=== PATIENT | male | born 1955 | race Caucasian/White ===

== ENCOUNTER → 2018-07-03 | Outpatient (CLI) | payer BC ==
--- NOTE | 2018-07-03 09:38 | CARD ---
MR#: [id number] Date of Study: 07/03/2018 Ordering Physician: SHAMIKA DOBBINS, Referring Physician: SHAMIKA DOBBINS Tech: Ashanti Louise RDCS APPROVED REPORT EXAM: Two-dimensional and M-mode echocardiogram with Doppler and color Doppler. Other Information Quality : AverageHR: 60bpm Rhythm : NSR INDICATION CAD 2D DIMENSIONS RVDd2.5 (2.9-3.5cm)Left Atrium(2D)3.1 (1.6-4.0cm) IVSd1.1 (0.7-1.1cm)Aortic Root(2D)2.8 (2.0-3.7cm) LVDd4.6 (3.9-5.9cm)LVOT Diameter2.0 (1.8-2.4cm) PWd1.0 (0.7-1.1cm)LVDs3.2 (2.5-4.0cm) FS (%) 30.1 %SV57.1 ml LVEF(%)57.3 (>50%) Aortic Valve AoV Peak Ralf.111.1cm/sAoV VTI22.6cm AO Peak GR.4.9mmHgLVOT Peak Ralf.97.5cm/s LVOT VTI 22.42cmAO Mean GR.2mmHg JOSE D (VMAX)2.79im7XID (VTI)2.98cm2 Mitral Valve MV E Jzhcgeoz12.1cm/sMV E Peak Gr.3mmHg MV DECEL [id number] A Pridbqwd82.7cm/s MV E Mean Gr.1mmHgE/A Ratio1.6 MV A Ydpzganx994iv Pulmonary Valve PV Peak Ztouoymc670.8cm/sPV Peak Grad.5mmHg LEFT VENTRICLE The left ventricle is normal size. There is borderline concentric left ventricular hypertrophy. The l eft ventricular systolic function is normal. The Ejection Fraction is 55-60%. There is normal LV segm ental wall motion. Transmitral Doppler flow pattern is Grade II-pseudonormal filling dynamics. RIGHT VENTRICLE The right ventricle is normal size. There is normal right ventricular wall thickness. The right ventr icular systolic function is normal. ATRIA The left atrium size is normal. The right atrium size is normal. The interatrial septum is intact wit h no evidence for an atrial septal defect or patent foramen ovale as noted on 2-D or Doppler imaging. AORTIC VALVE The aortic valve is trileaflet. The aortic valve is normal in structure and function. Doppler and Col or Flow revealed no significant aortic regurgitation. There is no significant aortic valvular stenosi s. MITRAL VALVE The mitral valve is normal in structure and function. There is no evidence of mitral valve prolapse. There is no mitral valve stenosis. Doppler and Color-flow revealed trace mitral regurgitation. TRICUSPID VALVE The tricuspid valve is normal in structure and function. Doppler and Color Flow revealed no tricuspid valve regurgitation noted. There is no tricuspid valve prolapse or vegetation. There is no tricuspid valve stenosis. PULMONIC VALVE The pulmonary valve is normal in structure and function. Doppler and Color Flow revealed no pulmonic valvular regurgitation. There is no pulmonic valvular stenosis. GREAT VESSELS The aortic root is normal in size. The ascending aorta is normal in size. PERICARDIAL EFFUSION There is no evidence of significant pericardial effusion. Critical Notification Critical Value: No <Conclusion> The left ventricular systolic function is normal. The Ejection Fraction is 55-60%. There is normal LV segmental wall motion. Doppler and Color-flow revealed trace mitral regurgitation. There is no evidence of significant pericardial effusion. Signed by : Shamika Dobbins, Electronically Approved : 07/03/2018 09:37:13
--- NOTE | 2018-07-03 13:43 | RAD ---
MR#: [id number] Date of Study: 07/03/2018 Ordering Physician: BETSY SOOD, Referring Physician: JAMAL LINDSAY Tech: RT Lisa (R) (N) APPROVED REPORT Test Type: Exercise Stress Nurse/Tech: Zelda Sood Test Indications: CAD Cardiac History: Hypertension, Diabetes, CAD Medications: SEE EHR Medical History: See Electronic Medical Record Resting Heart Rate: 60 bpm Resting Blood Pressure: 137/77mmHg Pretest Chest Pain: No chest pain Pharm. Details Pharmacologic stress testing was performed using 0.4mg per 5ml of regadenoson given intravenously ove r 7-10 seconds. POST EXERCISE Reason for Termination: Reached target heart rate Target HR: Yes Max HR: 137 bpm 1% of Maximum Predicted HR: 135 bpm Exercise duration: 8 min:sec, 2 Stage Exercise capacity: 10METs Max Blood Pressure: 158/73mmHg Blood Pressure response to exercise: Normal blood pressure response during stress. Heart Rate response to exercise: Normal Chest Pain: No. Arrhythmia: No. ST Change: No. INTERPRETATION Stress EKG Conclusion: Non-diagnostic EKG due to motion artifact. Imaging Protocol IMAGE PROTOCOL: Rest Tc-99m/stress Tc-99m 1 day Rest: Stress: Viability: Radiopharm.Tc99m YlolrjtlhUi99i Sestamibi Gche82vKn 33mCi Duration 15min. 15min. Img Date 07/03/2018 07/03/2018 Inj-Img Ilrv85ksp. 60min. Rest Admin Site:IV - Right AntecubitalAdministrator: RT Lisa (R)(N) Stress Admin Site: IV - Right AntecubitalAdministrator: RT Lisa (R)(N) STRESS DATA End Diast. Vol.100.0mlAv. Heart Rate73.0bpm LVEDV index BSA2.0mlCardiac Output0.1L/min End Syst. Vol.31.0mlCO Index BSA5.0L/min LVESV index BSA1.0mlMyocardial Oylm846.0g Eject. Kowrlwlf37.0% Stress Rates Pk. Fill Rate3.76EDV/secLVtime Pk. Fill 227.43msec Pk. Empty Rate3.86ESV/secLVtime Pk. Cfgir896.58msec 1/3 Pk. Fill1.04EDV/sec Stress Scores Regional WT0.00Summed WT1.00 Regional WM0.00Summed WM0.00 LV Perfusion There is a moderate sized, mild to moderate in severity, mid to distal anteroseptal and anterior perf usion defect that is fully reversible. This may be related to motion artifact. Wall Motion Normal wall motion. LV Perf. Quant 17 Seg. SSS6.00 17 Seg. SRS1.00 17 Seg. SDS6.00 Stress Defect Extent (% LAD)23.10Rest Defect Extent (% LAD)0.00Rev. Defect Extent (% LAD)21.90 Stress Defect Extent (% LCX) 5.00Rest Defect Extent (% LCX)0.00Rev. Defect Extent (% LCX)1.30 Stress Defect Extent (% RCA)0.00Rest Defect Extent (% RCA)0.00Rev. Defect Extent (% RCA)0.00 Stress Defect Extent (% SHIELA)13.70Rest Defect Extent (% SHIELA)0.00Rev. Defect Extent (% SHIELA)11.50 Other Information Quality:Good Risk Assessment: Low-Moderate Risk Conclusion 1. Non-diagnostic EKG due to motion artifact. 2. Anterior/anteroseptal defect as noted. 3. Normal EF at 65% 4. Low to moderate risk study Signed by : Sushant Mcmahan, Electronically Approved : 07/03/2018 13:42:55
== END | disposition home or self-care (01) ==
LOC: NM 07:58
PROVIDERS: ATTEND Internal Medicine Cardiovascular Disease
DX: I25.10 Atherosclerotic heart disease of native coronary artery without angina pectoris (principal); I10 Essential (primary) hypertension; E11.9 Type 2 diabetes mellitus without complications; Z79.01 Long term (current) use of anticoagulants; Z87.891 Personal history of nicotine dependence
CPT/HCPCS: 78452; 93017; 93306; 96374; 96375; 96376; A9500